=== PATIENT | male | born 1960 | race Caucasian/White ===

== ENCOUNTER 2019-01-31 11:08 | Emergency (ER) | payer MEDICAID ==
[~2019-01-31] VITALS: Ht 172.7 cm; Wt 96.6 kg
[~2019-01-31 11:08] MED LIST: ATEN-168 PO; CAT.1 PO; CEPH250C PO; CLIN300C11 PO; FURO-150 PO; LISI40TA4 PO; METF1000 PO; MIC5 PO; NOR10 PO; XALEYE OP
--- NOTE | 2019-01-31 11:10 | NUR ---
CALLED FOR TRIAGE, UNABLE TO LOCATE PT.
--- NOTE | 2019-01-31 11:20 | NUR ---
CALLED FOR TRIAGE, UNABLE TO LOCATE PT.
[2019-01-31 11:50] VITALS: BP_SYST 155
--- NOTE | 2019-01-31 16:00 | NUR ---
Patient to ER bed H1 to gown for evaluation. Side rails up.
--- NOTE | 2019-01-31 16:55 | NUR ---
Patient to ER bed 06 to gown for evaluation. Side rails up.
--- NOTE | 2019-01-31 17:00 | NUR ---
Patient awake and alert c/o bilateral leg pain and swelling. Patient reports PMH of HTN and DM. Patient denies any SOB. Skin warm/pink/dry and respirations even and unlabored. No signs or symptoms of acute distress noted.
--- NOTE | 2019-01-31 17:04 | NUR ---
ER Dr. Bee at bedside examining patient.
--- NOTE | 2019-01-31 17:20 | NUR ---
Patient given written and verbal discharge instructions and verbalizes understanding. ER Dr. Bee discussed with patient the results and treatment provided. Patient in stable condition. ID arm band removed. Rx of Keflex given. Patient educated on pain management and to follow up with PMD. Pain Scale 0/10. Opportunity for questions provided and answered. Medication side effect fact sheet provided.
[2019-01-31 17:33] VITALS: BP_SYST 145
== END 2019-01-31 17:20 | disposition home or self-care (01) ==
LOC: SED 11:08
DX: L03.115 Cellulitis of right lower limb (principal); E11.9 Type 2 diabetes mellitus without complications; I10 Essential (primary) hypertension; Z88.2 Allergy status to sulfonamides; Z88.1 Allergy status to other antibiotic agents; Z79.84 Long term (current) use of oral hypoglycemic drugs; Z79.899 Other long term (current) drug therapy
CPT/HCPCS: 99283